=== PATIENT | male | born 1985 | race Two or more races ===

== ENCOUNTER 2020-04-30 13:16 | Emergency (ER) | payer OTHER, MEDICAID ==
[~2020-04-30] VITALS: Ht 182.9 cm; Wt 72.6 kg
[2020-04-30 13:24] VITALS: BP 142/87
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
--- NOTE | 2020-04-30 15:19 | Diagnostic Imaging Report ---
Indication: Pain, trauma Technique: 3 views of the left knee Comparison: None Findings: No suprapatellar effusion. No definite acute fractures. No dislocations. One or more calcific densities, measuring up to 3 mm in diameter, project adjacent to the tibial spines on the AP and oblique projection. A surgical screw is seen within the proximal tibia. There is also a screw within the medullary space of the distal femur. The joint spaces are preserved. Impression: No definite acute bony trauma Postsurgical changes, including evidence of prior proximal tibial ORIF, possible prior posterior cruciate ligament repair One or more tiny calcific densities projecting in the joint space adjacent to the tibial spines, could indicate small intra-articular loose bodies, possibly related to the prior surgery or prior trauma.
[2020-04-30 16:15] VITALS: BP 135/84
--- NOTE | 2020-04-30 16:33 | Diagnostic Imaging Report ---
Indication: Pain, trauma Technique: 3 views of the lumbar spine Comparison: None Findings: Vertebral body heights are preserved. The disc spaces are preserved. The pedicles are intact. No acute fractures. No dislocations. Impression: Negative
--- NOTE | 2020-04-30 16:36 | Diagnostic Imaging Report ---
Indications: Trauma, pain Technique: 3 views of the thoracic spine Comparison: None Findings: There is a compression fracture of the T7 vertebral body. This results in approximately 30% height loss. There is no evidence of posterior retropulsion. The remaining vertebral body heights are preserved. The bony alignment is normal. The disc spaces are preserved. The pedicles are intact. Impression: Positive for T7 vertebral body compression fracture, resulting in approximately 30% height loss. This finding was phoned to Dr. Nye in the emergency room at the time of interpretation
--- NOTE | 2020-04-30 16:40 | Diagnostic Imaging Report ---
Clinical Indication:Pain, trauma Technique: 3 views of the left wrist Comparison: None Findings: No acute fractures. No dislocations. The joint spaces are preserved. Impression: Negative
== END 2020-04-30 16:15 ==
LOC: EDBD 13:16 → EMR 14:04
DX: S89.92XA Unspecified injury of left lower leg, initial encounter (principal); S69.92XA Unspecified injury of left wrist, hand and finger(s), initial encounter; S39.92XA Unspecified injury of lower back, initial encounter; S22.068A Other fracture of T7-T8 thoracic vertebra, initial encounter for closed fracture; W19.XXXA Unspecified fall, initial encounter; Y92.9 Unspecified place or not applicable
CPT/HCPCS: 72020; 72070; 99284